=== PATIENT | male | born 1985 | race African-American/Black ===

== ENCOUNTER 2017-05-15 15:11 | Emergency (ER) | payer SELFPAY ==
[~2017-05-15] VITALS: Ht 182.9 cm; Wt 81.6 kg
[2017-05-15 15:26] VITALS: BP 130/81
[2017-05-15] MEDS ORDERED: DOXYCYCLINE MO100 MG ORAL (15:41)
[2017-05-15 15:49] VITALS: BP 130/81
[2017-05-15 15:57] LABS: APPEARANCE,URINE CLEAR; KETONES,URINE NEGATIVE (NEGATIVE); LEUKOCYTE ESTERASE ,URINE 1+ (NEGATIVE); NITRITE,URINE NEGATIVE (NEGATIVE); PH,URINE 7 (4.5-8.0); PROTEIN,URINE NEGATIVE (NEGATIVE); UROBILINOGEN,URINE NORMAL MG/DL (0.0-1.0)
[2017-05-15 16:09] LABS: RBC,URINE 0-2 /HPF (0 - 0)
[2017-05-15 16:10] LABS: BACTERIA,URINE FEW /HPF
--- NOTE | 2017-05-15 18:46 | Emergency Room Report ---
History of Present Illness General Chief Complaint: Male Urogenital Problems Source: Patient Present Illness HPI Patient is a 32-year-old male presented for increased urethral discharge. Patient reported having recent unprotected sex. Patient stated he had been having some mild dysuria. He denies any fever. He denied any testicular pain or swelling. He denied any hesitancy with urination. The patient denied any other complaints this time. Patient presented for STD testing. Allergies: Coded Allergies: No Known Allergies (Unverified , 05/15/17) Patient History Past Medical History: see triage record Reviewed Nursing Documentation: PMH: Agreed, PSxH: Agreed Nursing Documentation-PM Past Medical History: No Stated History Review of Systems All Other Systems: negative except mentioned in HPI Physical Exam Vital Signs Date Time Temp Pulse Resp B/P Pulse Ox O2 Delivery O2 Flow Rate FiO2 05/15/17 15:15 98.1 71 20 130/81 96 Room Air General Appearance: well appearing, no apparent distress, alert, GCS 15 Head: normocephalic, atraumatic ENT: hearing grossly normal, normal voice Neck: full range of motion, supple Respiratory: normal inspection, lungs clear, no respiratory distress, speaking full sentences Cardiovascular #1: normal inspection, normal peripheral pulses Gastrointestinal: normal inspection, non tender Musculoskeletal: normal inspection, no calf tenderness Neurologic: normal inspection, alert, oriented x3, skip loader III-XII nml as tested, normal gait Psychiatric: mood/affect normal Skin: no rash Medical Decision Making Diagnostic Impression: Primary Impression: Urethritis ER Course Patient presented for dysuria. Differential diagnosis included was not limited to appendicitis, urinary tract infection, pelvic inflammatory disease, urethritis, herpes among others. Patient's benign exam and does not appear to require any further imaging or laboratory testing at this time. The patient given empiric treatment for urethritis. He is advised followup for outpatient STD testing. Last Vital Signs Date Time Temp Pulse Resp B/P Pulse Ox O2 Delivery O2 Flow Rate FiO2 05/15/17 15:49 98.1 71 20 130/81 96 Room Air Status: improved Disposition: HOME, SELF-CARE Condition: Stable Scripts Doxycycline Monohydrate* (DOXYCYCLINE MONOHYDRATE*) 100 Mg Capsule 100 MG ORAL Q12H, #14 CAP 0 Refills Prov: Serafin Hernández 05/15/17 Referrals: NOT CHOSEN IPA/MD,REFERRING (PCP) Patient Instructions: Urethritis, Adult Serafin Hernández May 15, 2017 18:46
== END 2017-05-15 15:49 | disposition home or self-care (01) ==
LOC: EDBD 15:11 → EMR 15:48
DX: N34.2 Other urethritis (principal)
CPT/HCPCS: 81003; 96372; 99283; J0696

== ENCOUNTER 2017-12-24 20:04 | Emergency (ER) | payer SELFPAY ==
[~2017-12-24] VITALS: Ht 182.9 cm; Wt 86.2 kg
[~2017-12-24 20:04] MED LIST: DOXYCYCLINE MO100 MG ORAL
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
[2017-12-24 21:36] VITALS: BP 127/87
[2017-12-24] MEDS ORDERED: Bacitracin Oint UD TOPIC ONE (21:45)
[2017-12-24] MEDS ORDERED: KEFLEX500 MG ORAL (21:47)
[2017-12-24 21:54] VITALS: BP 127/87
== END 2017-12-24 21:54 | disposition home or self-care (01) ==
LOC: EMR 21:08
DX: S61.412A Laceration without foreign body of left hand, initial encounter (principal); W26.0XXA Contact with knife, initial encounter; Y92.9 Unspecified place or not applicable
CPT/HCPCS: 99283